=== PATIENT | female | born 1965 | race Caucasian/White ===

== ENCOUNTER → 2019-08-22 | Outpatient (CLI) | payer OTHER ==
--- NOTE | 2019-08-22 11:55 | CT ---
EXAMINATION TYPE: CT sinus wo con DATE OF EXAM: 08/22/2019 COMPARISON: None HISTORY: Patient complains of snoring, ear problems, decreased sense of smell. CT DLP: 660.9 mGycm. Automated Exposure Control for Dose Reduction was Utilized. TECHNIQUE: CT scan of the sinuses is performed without contrast, axial images are obtained, coronal r eformatted images are also reviewed. FINDINGS: The paranasal sinuses including the frontal, ethmoid, sphenoid, and maxillary sinuses bila terally are well-aerated without abnormal opacification. The ostiomeatal complex is patent bilateral ly on the coronal images. Nasal septal deviation noted. Visualized portion of mastoid air cells show no abnormal opacification. The globes are intact bilate rally. IMPRESSION: 1. The sinuses are clear and the ostiomeatal complex is patent bilaterally. 2. Nasal septal deviation
== END | disposition home or self-care (01) ==
LOC: RADCTMAIN 11:13
PROVIDERS: ATTEND Otolaryngology
DX: J32.9 Chronic sinusitis, unspecified (principal); J34.2 Deviated nasal septum; S09.93XA Unspecified injury of face, initial encounter
CPT/HCPCS: 70486

== ENCOUNTER → 2020-12-18 | Outpatient (CLI) | payer OTHER ==
--- NOTE | 2020-12-29 09:21 | MM ---
Reason for exam: screening (asymptomatic). Last mammogram was performed 3 years and 4 months ago. History: Patient had first child at age 33. Family history of breast cancer in mother at age 71 and breast cancer in sister at age 40. Benign excisional biopsy of the left breast, 1993. Took hormonal contraceptives for 5 years. Taking progesterone for 1 month. Physical Findings: A clinical breast exam by your physician is recommended on an annual basis and results should be correlated with mammographic findings. MG 3D Screening Mammo W/Cad Bilateral CC and MLO view(s) were taken. Prior study comparison: August 30, 2017, mammogram, performed at [place]. The breast tissue is heterogeneously dense. This may lower the sensitivity of mammography. Benign vascular calcifications. No persisting abnormality on 3D images. No significant changes when compared with prior studies. ASSESSMENT: Benign, BI-RAD 2 RECOMMENDATION: Routine screening mammogram of both breasts in 1 year.
== END | disposition home or self-care (01) ==
LOC: RADMAMWWP 11:09
PROVIDERS: ATTEND Obstetrics & Gynecology
DX: Z12.31 Encounter for screening mammogram for malignant neoplasm of breast (principal); Z80.3 Family history of malignant neoplasm of breast
CPT/HCPCS: 77063; 77067

== ENCOUNTER → 2021-09-24 | Outpatient (CLI) | payer OTHER ==
[2021-09-24 14:51] LABS: HCT 40.9 % (37.2-46.3); HGB 13.2 g/dL (12.0-15.0); MCH 29.3 pg (27.0-32.0); MCHC 32.3 g/dL (32.0-37.0); MCV 90.7 fL (80.0-97.0); Mean Platelet Volume 11.6 fL (9.5-12.2); NRBC Per 100 WBC 0 /100 WBCS (0.0-0.0); Platelet Count 196 X 10*3/uL (140-440); RBC 4.51 X 10*6/uL (4.10-5.20); RDW 12.9 % (11.5-14.5); WBC 4.38 X 10*3/uL (4.50-10.00)
[2021-09-24 15:39] LABS: % Iron Saturation 27.99 (12.00-45.00); ALT 17 U/L (8-44); AST 17 U/L (13-35); African American GFR (CKD) 84.1 (60.0-200.0); Albumin 4.7 g/dL (3.8-4.9); Albumin/Globulin Ratio 2.11 (1.60-3.17); Alkaline Phosphatase 60 U/L (41-126); Blood Urea Nitrogen 14.3 mg/dL (9.0-27.0); C Reactive Protein <0.30 mg/dL (0.00-0.80); Calcium 9.8 mg/dL (8.7-10.3); Carbon Dioxide 24.8 mmol/L (20.0-27.5); Chloride 103 mmol/L (96-109); GGT 10 U/L (0-38); Globulin 2.2 g/dL (1.6-3.3); Glucose 89 mg/dL (70-110); Iron 125 ug/dL (50-170); Non-African American GFR(CKD) 72.6 (60.0-200.0); Potassium 4.3 mmol/L (3.5-5.5); Sodium 139 mmol/L (135-145); Total Iron Binding Capacity 447 ug/dL (228-460)
[2021-09-24 15:40] LABS: Erythrocyte Sedimentation Rate 3 mm/Hr (0-30)
[2021-09-24 15:44] LABS: Estradiol 82.2 pg/mL
[2021-09-24 16:02] LABS: Progesterone 2.1 ng/mL
[2021-09-24 16:55] LABS: LDL Cholesterol,Calculated 97.5 mg/dL (0.0-131.0)
[2021-09-24 18:03] LABS: Insulin Level 6.9 mIU/mL (3.0-25.0)
== END | disposition home or self-care (01) ==
LOC: LABWHC1 08:40
PROVIDERS: ATTEND Family Medicine
DX: I10 Essential (primary) hypertension (principal); D64.9 Anemia, unspecified; M06.9 Rheumatoid arthritis, unspecified; E78.5 Hyperlipidemia, unspecified; E03.9 Hypothyroidism, unspecified; E72.10 Disorders of sulfur-bearing amino-acid metabolism, unspecified; E34.9 Endocrine disorder, unspecified; E55.9 Vitamin D deficiency, unspecified; E53.9 Vitamin B deficiency, unspecified; E23.7 Disorder of pituitary gland, unspecified; R73.09 Other abnormal glucose
CPT/HCPCS: 36415; 80053; 80061; 82306; 82533; 82607; 82627; 82670; 82728; 82977; 83036; 83090; 83525; 83540; 83550; 84144; 84402; 84403; 84439; 84443; 84481; 85027; 85652; 86140; 86376; 86800

== ENCOUNTER → 2022-03-31 | Outpatient (CLI) | payer BC ==
[2022-03-31 10:49] LABS: HCT 39.2 % (37.2-46.3); HGB 12.7 g/dL (12.0-15.0); MCH 28.8 pg (27.0-32.0); MCHC 32.4 g/dL (32.0-37.0); MCV 88.9 fL (80.0-97.0); Mean Platelet Volume 12.3 fL (9.5-12.2); NRBC Per 100 WBC 0 /100 WBCS (0.0-0.0); Platelet Count 179 X 10*3/uL (140-440); RBC 4.41 X 10*6/uL (4.10-5.20); RDW 13.2 % (11.5-14.5); WBC 4.86 X 10*3/uL (4.50-10.00)
[2022-03-31 11:38] LABS: Progesterone 0.2 ng/mL
[2022-03-31 11:41] LABS: Bilirubin, Conjugated 0.25 mg/dL (0.20-0.40); Bilirubin,Unconjugated 0.85 mg/dL (0.20-1.00); Ferritin 17.8 ng/mL (10.0-291.0); T4, Free (Free Thyroxine) 0.96 ng/dL (0.800-1.800); Total Bilirubin 1.1 mg/dL (0.30-1.20)
[2022-03-31 11:58] LABS: Estradiol 83.6 pg/mL; Follicle Stimulating Hormone 43.4 mIU/mL; Luteinizing Hormone 43.7 mIU/mL; Testosterone 28.9 ng/mL (7.00-45.62)
== END | disposition home or self-care (01) ==
LOC: LABWHC1 08:13
PROVIDERS: ATTEND Family Medicine
DX: E34.9 Endocrine disorder, unspecified (principal); E03.9 Hypothyroidism, unspecified; D64.9 Anemia, unspecified; E80.7 Disorder of bilirubin metabolism, unspecified
CPT/HCPCS: 36415; 82248; 82670; 82728; 83001; 83002; 84144; 84260; 84402; 84403; 84432; 84439; 84443; 84481; 85027; 86376; 86800

== ENCOUNTER → 2022-05-09 | Outpatient (CLI) | payer BC ==
--- NOTE | 2022-05-09 19:40 | US ---
EXAMINATION TYPE: US transvaginal DATE OF EXAM: 05/09/2022 COMPARISON: NONE CLINICAL HISTORY: 56-year-old female N93.8 Abnormal vaginal bleeding. Vaginal bleeding. Patient is on progesterone since April 13, 2022. Hx 2 miscarriages. A2. TECHNIQUE: Transvaginal (TV). Date of LMP: 04/20/2022 FINDINGS: EXAM MEASUREMENTS: Uterus: 7.1 x 4.6 x 3.3 cm Endometrial Stripe: 0.43 cm Right Ovary: Not seen with certainty Left Ovary: Not seen 1. Uterus: Anteverted. Slightly heterogeneous myometrium. Suspected debris filled 6 mm cervical na bothian cyst. 2. Endometrium: Measures 0.43 cm 3. Right Ovary: Not seen with certainty 4. Left Ovary: Not seen due to bowel gas 5. Bilateral Adnexa: Anechoic area seen right adnexa: 4.0 x 4.2 x 2.2 cm. Ovarian tissue not definit olena seen. Possible fluid that extends throughout the right adnexa. 6. Posterior cul-de-sac: Appears wnl IMPRESSION: 1. Possible cystic right ovarian lesion measuring 4.2 cm. Ovarian tissue is not discretely visualized . Correlate with CA-125 values. Reassess at a 2-3 month follow-up. Consider female pelvic MRI for mor e accurate evaluation. 2. Unable to visualize the left ovary.
== END | disposition home or self-care (01) ==
LOC: RADUSWWP 15:01
PROVIDERS: ATTEND Family Medicine
DX: N93.8 Other specified abnormal uterine and vaginal bleeding (principal)
CPT/HCPCS: 76830

== ENCOUNTER → 2022-05-18 | Outpatient (CLI) | payer BC ==
[2022-05-18 15:47] LABS: Estradiol 39.4 pg/mL; Luteinizing Hormone 75.7 mIU/mL
== END | disposition home or self-care (01) ==
LOC: LABWHC1 08:16
PROVIDERS: ATTEND Family Medicine
DX: E34.9 Endocrine disorder, unspecified (principal)
CPT/HCPCS: 36415; 82670; 83002; 84144; 84443

== ENCOUNTER → 2022-06-06 | Outpatient (CLI) | payer BC ==
[2022-06-06 10:38] LABS: HCT 40.1 % (37.2-46.3); HGB 13.5 g/dL (12.0-15.0); MCH 29.7 pg (27.0-32.0); MCHC 33.7 g/dL (32.0-37.0); MCV 88.1 fL (80.0-97.0); Mean Platelet Volume 12.3 fL (9.5-12.2); NRBC Per 100 WBC 0 /100 WBCS (0.0-0.0); Platelet Count 168 X 10*3/uL (140-440); RBC 4.55 X 10*6/uL (4.10-5.20); RDW 13.2 % (11.5-14.5); WBC 5.14 X 10*3/uL (4.50-10.00)
[2022-06-06 11:00] LABS: % Iron Saturation 16.96 (12.00-45.00); ALT 17 U/L (8-44); AST 18 U/L (13-35); African American GFR (CKD) 96.2 (60.0-200.0); Albumin 4.4 g/dL (3.8-4.9); Albumin/Globulin Ratio 1.76 (1.60-3.17); Alkaline Phosphatase 76 U/L (41-126); BUN/Creat Ratio 20.88 Ratio (12.00-20.00); Bilirubin, Conjugated <0.20 mg/dL (0.20-0.40); Blood Urea Nitrogen 16.7 mg/dL (9.0-27.0); Calcium 9.5 mg/dL (8.7-10.3); Carbon Dioxide 23.1 mmol/L (20.0-27.5); Chloride 106 mmol/L (96-109); Ferritin 39.9 ng/mL (10.0-291.0); GGT <10 U/L (0-38); Globulin 2.5 g/dL (1.6-3.3); Glucose 100 mg/dL (70-110); Iron 62 ug/dL (50-170); Potassium 4.4 mmol/L (3.5-5.5); Sodium 141 mmol/L (135-145); Total Iron Binding Capacity 367 ug/dL (228-460); Total Protein 6.9 g/dL (6.2-8.2)
[2022-06-06 11:02] LABS: Chol/HDL Ratio 2.58 Ratio; Insulin Level 12.6 mIU/mL (3.0-25.0); LDL Cholesterol,Calculated 87.4 mg/dL (0.0-131.0); VLDL Calculation 11.86 mg/dL (5.00-40.00)
[2022-06-06 11:16] LABS: C Reactive Protein, High Sens 0.773 mg/L (0.000-3.000); Estradiol 42.2 pg/mL
[2022-06-06 11:29] LABS: Erythrocyte Sedimentation Rate 10 mm/Hr (0-30)
[2022-06-07 12:15] LABS: T4/T8 Ratio (CD4:CD8) 1.7 (1.0-3.7)
== END | disposition home or self-care (01) ==
LOC: LABWHC1 07:39
PROVIDERS: ATTEND Family Medicine
DX: I10 Essential (primary) hypertension (principal); E80.7 Disorder of bilirubin metabolism, unspecified; D64.9 Anemia, unspecified; M06.9 Rheumatoid arthritis, unspecified; E03.9 Hypothyroidism, unspecified; E72.10 Disorders of sulfur-bearing amino-acid metabolism, unspecified; E34.9 Endocrine disorder, unspecified; E55.9 Vitamin D deficiency, unspecified; E23.7 Disorder of pituitary gland, unspecified; E53.9 Vitamin B deficiency, unspecified; E11.9 Type 2 diabetes mellitus without complications; D83.9 Common variable immunodeficiency, unspecified; M32.9 Systemic lupus erythematosus, unspecified
CPT/HCPCS: 36415; 80053; 80061; 82248; 82306; 82533; 82607; 82627; 82670; 82728; 82977; 83036; 83090; 83525; 83540; 83550; 84144; 84402; 84403; 84439; 84443; 84481; 85027; 85652; 86038; 86141; 86360; 86800

== ENCOUNTER → 2022-06-29 | Outpatient (CLI) | payer BC ==
[2022-06-29 16:02] LABS: Follicle Stimulating Hormone 90.5 mIU/mL; T4, Free (Free Thyroxine) 1.24 ng/dL (0.800-1.800)
[2022-06-29 16:03] LABS: Progesterone 8.7 ng/mL
[2022-06-29 19:55] LABS: Insulin Level 11.1 mIU/mL (3.0-25.0)
== END | disposition home or self-care (01) ==
LOC: LABWHC1 08:35
PROVIDERS: ATTEND Family Medicine
DX: E03.9 Hypothyroidism, unspecified (principal); E34.9 Endocrine disorder, unspecified; R73.09 Other abnormal glucose
CPT/HCPCS: 36415; 82672; 83001; 83002; 83036; 83525; 84144; 84439; 84443; 84481; 86376

== ENCOUNTER → 2022-06-30 | Outpatient (CLI) | payer BC ==
--- NOTE | 2022-07-01 07:51 | MM ---
Reason for Exam: Screening (asymptomatic). Last mammogram was performed 1 year(s) and 6 month(s) ago. Patient History: Menarche at age 13. First Full-Term at age 33. Late child-bearing (after 30). Postmenopausal. Patient has history of breast feeding. Currently using Progesterone, for 1 month. Patient used Hormonal Contraceptives for 5 years. 1993, Benign Excisional Biopsy on the left side. Sister had breast cancer, age 40. Mother had breast cancer, age 71. Risk Values: Anitha 5 year model risk: 4.1%. NCI Lifetime model risk: 25.8%. Prior Study Comparison: 08/30/2017 Screening Mammogram, [place]. 12/18/2020 Bilateral Screening Mammogram, [facility]. Tissue Density: The breast tissue is heterogeneously dense. This may lower the sensitivity of mammography. Findings: Analyzed By CAD. Stable oval circumscribed 4 to 5 mm mass in the anterior right breast from 2018 mammogram. There is no suspicious group of microcalcifications or new suspicious mass in either breast. Overall Assessment: Benign, BI-RAD 2 Management: Screening Mammogram of both breasts in 1 year. A clinical breast exam by your physician is recommended on an annual basis and results should be correlated with mammographic findings. Electronically signed and approved by: Jj Acuna M.D.
== END | disposition home or self-care (01) ==
LOC: RADMAMWWP 11:19
PROVIDERS: ATTEND Obstetrics & Gynecology
DX: Z12.31 Encounter for screening mammogram for malignant neoplasm of breast (principal); Z78.0 Asymptomatic menopausal state; Z80.3 Family history of malignant neoplasm of breast
CPT/HCPCS: 77063; 77067

== ENCOUNTER → 2022-11-28 | Outpatient (CLI) | payer BC ==
[2022-11-28 16:21] LABS: Follicle Stimulating Hormone 82.7 mIU/mL
== END | disposition home or self-care (01) ==
LOC: LABWHC1 08:25
PROVIDERS: ATTEND Obstetrics & Gynecology
DX: N95.1 Menopausal and female climacteric states (principal); R37 Sexual dysfunction, unspecified
CPT/HCPCS: 36415; 82670; 83001; 84144

== ENCOUNTER → 2024-02-23 | Outpatient (CLI) | payer BC ==
--- NOTE | 2024-03-14 20:51 | MM ---
Reason for Exam: Screening (asymptomatic). Last mammogram was performed 1 year(s) and 8 month(s) ago. Patient History: Menarche at age 13. First Full-Term at age 33. Late child-bearing (after 30). Postmenopausal. Patient has history of breast feeding. Currently using Progesterone, for 1 month. Patient used Hormonal Contraceptives for 5 years. 1993, Benign Excisional Biopsy on the left side. Sister had breast cancer, age 40. Mother had breast cancer, age 71. Risk Values: Jonathan 5 year model risk: 4.5%. NCI Lifetime model risk: 24.8%. Prior Study Comparison: 08/30/2017 Screening Mammogram, [place]. 12/18/2020 Bilateral Screening Mammogram, [facility]. 06/30/2022 Bilateral MG 3D screening mammo w/cad, [facility]. Tissue Density: The breasts are heterogeneously dense, which may obscure small masses. Findings: Analyzed By CAD. Possible underlying spiculated mass 1:00 right breast middle to posterior depth for which further evaluation is recommended. Otherwise, no significant change. Overall Assessment: Incomplete: need additional imaging evaluation, BI-RAD 0 Management: Special View Mammogram of the right breast. Diagnostic Breast Ultrasound of the right breast. SEE NOTE BELOW IN REGARDS TO THE PATIENT'S INCREASED 5 YEAR JONATHAN SCORE AND INCREASED LIFETIME RISK SCORE. [facility] will attempt to contact patient to return for supplemental views and ultrasound if indicated. Note on Jonathan scores and lifetime risk: 1. A Jonathan score greater than 3% is considered moderate risk. If this is the case, consider specialist referral to assess eligibility for a risk reducing agent. 2. If overall lifetime risk for the development of breast cancer is 20% or higher, the patient may qualify for future screening with alternating mammogram and breast MRI. Electronically signed and approved by: Mabel Rogel M.D. Radiologist
== END | disposition home or self-care (01) ==
LOC: RADMAMWWP 10:09
PROVIDERS: ATTEND Obstetrics & Gynecology
DX: Z12.31 Encounter for screening mammogram for malignant neoplasm of breast (principal); R92.333 Mammographic heterogeneous density, bilateral breasts; Z78.0 Asymptomatic menopausal state; Z80.3 Family history of malignant neoplasm of breast; Z92.0 Personal history of contraception
CPT/HCPCS: 77063; 77067

== ENCOUNTER → 2024-06-13 | Outpatient (CLI) | payer BC ==
--- NOTE | 2024-06-13 15:42 | BD ---
EXAMINATION TYPE: Axial Bone Density DATE OF EXAM: 06/13/2024 CLINICAL HISTORY: 58 years old Female. ICD-10 CODE: M81.0 OSTEOPENIA , Additional History: Height: 65.25 Weight: 134 FRAX RISK QUESTIONS: Family History (Parent hip fracture): no History of Fracture in Adulthood: no Secondary Osteoporosis: no Rheumatoid Arthritis: yes RISK FACTORS HISTORY OF: Surgery to Spine/Hip(right/left)/Wrist (right/left): no MEDICATIONS: Thyroid Medications: no Osteoporosis Medications: no EXAM MEASUREMENTS: Bone mineral densitometry was performed using the [employer] System. Bone mineral density as measured about the Lumbar spine is: ----- L1-L4(G/cm2): 1.372 T Score Values are as follows: ----- L1: 1.2 ----- L2: 1.2 ----- L3: 2.2 ----- L4: 1.5 ----- L1-L4: 1.6 Z Score Values are as follows: ----- L1: 2.4 ----- L2: 2.4 ----- L3: 3.3 ----- L4: 2.7 ----- L1-L4: 2.8 Bone mineral density baseline Bone mineral density about the R hip (g/cm2): 1.063 Bone mineral density about the L hip (g/cm2): 1.094 T Score values are as follows: -----R Neck: 0.0 -----L Neck: 0.1 -----R Total: 0.4 -----L Total: 0.7 Z Score values are as follows: -----R Neck: 1.2 -----L Neck: 1.4 -----R Total: 1.3 -----L Total: 1.6 Bone mineral density baseline FRAX%s: The graph provided illustrates a 6.8% chance for a major osteoporotic fx and a 0.2% chance fo r the hips probability for fx in 10 years time. IMPRESSION: Normal (Values between +1 and -1 indicate normal bone mass). Consider repeating this study in 5 year s or sooner if there is some new clinical indication. NOTE: T-SCORE=SD OF THE YOUNG ADULT MEAN. [facility], , 06/13/2024 3:39 PM
== END | disposition home or self-care (01) ==
LOC: RADBDWWP 09:21
PROVIDERS: ATTEND Internal Medicine Hematology & Oncology
DX: C50.811 Malignant neoplasm of overlapping sites of right female breast (principal); M81.0 Age-related osteoporosis without current pathological fracture; M12.9 Arthropathy, unspecified
CPT/HCPCS: 77080